=== PATIENT | female | born 1965 | race Caucasian/White ===

== ENCOUNTER 2016-10-07 13:18 | Day surgery (SDC) | payer BC ==
[2016-10-01 16:01] VITALS: BMI 36.8
[~2016-10-07] VITALS: Ht 170.2 cm; Wt 101.8 kg
[2016-10-07] VITALS (10 sets, daily range): BP systolic 114–137; BP diastolic 58–86; PULSE 86–96; RESP 3–25; Ht 170.2 cm; Wt 101.8 kg
[~2016-10-07 13:18] MED LIST: BUPR1PAT; CYCL-319; GABA-526; HYDR12.58; MELO-110; OXYC-183; SERT-165
[2016-10-07] MEDS ORDERED: GABA-526 PO (14:16)
[2016-10-07] MEDS ORDERED: HYDR12.58 PO (14:18)
[2016-10-07] MEDS ORDERED: HYDR-902 PO (14:18)
[2016-10-07] MEDS ORDERED: SERT100T PO (14:19)
[2016-10-07] MEDS ORDERED: MELO-110 PO (14:19)
[2016-10-07] MEDS ORDERED: PROPOFOL 20 ML ONE (15:44)
[2016-10-07] MEDS ORDERED: ROCURONIUM 50 MG INJ ONE (15:44)
[2016-10-07] MEDS ORDERED: MIDAZOLAM 1 MG/ML 2 ML INJ ONE (15:44)
[2016-10-07] MEDS ORDERED: FENTAnyl 50 MCG/ML VIAL ONE (15:45)
[2016-10-07] MEDS ORDERED: LIDOCAINE 1% (MDV) 20 ML INJ ONE (15:45)
--- NOTE | 2016-10-07 15:55 | HPN ---
Date/Time of Note Date/Time of Note DATE: 10/07/16 TIME: 15:55 Interval H&P Admission Note Pt. seen H&P reviewed: No system changes SHAISTA MANNING MD Oct 07, 2016 15:55
[2016-10-07] MEDS ORDERED: morphine 2 MG INJ IV PRN (16:00)
[2016-10-07] MEDS ORDERED: morphine 10 MG INJ IV PRN (16:00)
[2016-10-07] MEDS ORDERED: CEFAZOLIN 1 GM INJ ONE (16:07)
[2016-10-07] MEDS ORDERED: FAMOTIDINE 20 MG INJ ONE (16:13)
[2016-10-07] MEDS ORDERED: ONDANSETRON 4 MG INJ ONE (16:13)
[2016-10-07] MEDS ORDERED: DEXAMETHASONE 4 MG/ML 1 ML INJ ONE (16:13)
[2016-10-07] MEDS ORDERED: BUPIVACAINE 0.5% (MPF) 30 ML INJ INJ ONE (16:26)
[2016-10-07] MEDS ORDERED: BUPIVACAINE 0.5% (SDV) 30 ML INJ ONE (16:29)
[2016-10-07] MEDS ORDERED: ROPIVACAINE 0.5 % 30 ML VIAL INJ ONE (17:03)
[2016-10-07] MEDS ORDERED: ROPIVACAINE 0.5 % 30 ML VIAL ONE (17:05)
[2016-10-07] MEDS ORDERED: LABETALOL HCL 20MG INJ ONE (17:25)
[2016-10-07] MEDS ORDERED: SUGAMMADEX SODIUM 200 MG/2 ML VIAL IV ONE (17:31)
--- NOTE | 2016-10-07 17:54 | OPR ---
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 with a 2 x 2 chondral defect that is partial-thickness Operation Performed Right knee arthroscopy with chondroplasty of the patellofemoral compartment, medial compartment, lateral compartment Right knee arthroscopy with extensive debridement of ACL tear with partial attachment of the femoral side and full attachment of the tibial side Right knee medial and lateral partial meniscectomy Surgeon: SHAISTA MANNING MD Anesthesia Type: general, other (20 cc of ropivacaine) Anesthesiologist: JOANNE SUAREZ DO Tourniquet Time: 55 minutes at 250 mmHg Estimated Blood Loss: minimal Transfusion Required: no Specimen: none Grafts/Implants: none Complications: no Pt Condition Post Procedure: stable Disposition: PACU Indications Patient is a 50-year-old female who sustained a right knee injury several months ago with MRI confirming a partial ACL tear and medial lateral meniscal tear patient underwent extensive physical therapy and treatment anti- inflammatories however he did have catching clicking and locking pain without any complaints of any instability. Given that the patient is not athletic and not interested in returning to any sports of any time patient did not want to proceed with any ACL reconstruction and understands that if she does want to play any sports then she would need to be braced accordingly. Patient did have continued medial joint line pain and positive Hermann's sign that corresponded with her medial meniscus tear along with mechanical symptoms indicating patient for surgery. Operative\Procedure Findings Risk Note: Patient was explained the risks and benefits of surgery and the patient's [place] language including not limited to infection, bleeding, injury to blood vessels, nerves, ligaments or tendons. Risks of anesthesia, deep vein thrombosis and need for reduce future surgery. Patient acknowledged these risk by signing the surgical consent form. Procedure Description The correct operative site was noted and marked in the preoperative holding area. The patient was then brought back into the operative theater, placed supine on the operative table. Left knee was examined under anesthesia. Range of motion was 0-120. There is no varus or valgus or posterior instability. There is slightly positive anterior drawer and tamiko There is crepitus noticed at the patellofemoral joint. Tourniquet was then placed on the operative extremity thigh non-sterilely. Patient was then given preoperative antibiotics and then prepped and draped in normal sterile fashion. A timeout was taken and all parties in the room agreed it was the correct patient, correct extremity and correct procedure. 10 cc of 0.25% Marcaine without epi was injected into the anteriorlateral and anteriormedial portal sites prior to incision. Standard anterior lateral portal was created and the knee joint was entered with a blunt tipped trocar, followed by 30 arthroscope. Inflow was achieved with a pump and the pressure maintained at approximately 50 mmHg. A routine arthroscopic surgery was performed. Suprapatella pouch was unremarkable. The undersurface of the patella showed advanced grade 2 chondromalacia The medial and lateral gutters were visualized. There were no loose bodies seen. There is an inflamed hypertrophic plica noted in the anterior and superior medial aspect of the knee. The popliteus hiatus was entered and was normal. Lateral compartment was entered and grade 1 chondromalacia was seen on the lateral tibial plateau and femoral condyle. Scope was then brought into the intercondylar notch and an anteromedial portal was made. Shaver was brought into the knee and small amount of fat pad and scar tissue was initially gently debrided. The anterior cruciate ligament was probed and found to have a large tear in the central portion of the ACL with a scar ball of ACL in the intercondylar notch at the tibial attachment site. There is evidence of avulsion of approximately 75-80% of the ACL off the femoral wall and attached to anything which was gently debrided.. The knee was brought into a valgus position and the medial compartment was entered. The articular surface of the medial femoral condyle and medial tibial plateau revealed grade 3 chondromalacia 2 x 2 partial- thickness lateral defect. There was a longitudinal posterior horn medial meniscus tear extending to the midbody that was associated with a parrot-beak tear that visualized and debrided gently with a motorized shaver and basket forceps. The motorized shaver and basket biters were used to smooth the remaining meniscal rim, with care to maintain the peripheral meniscal rim. A probe was introduced and this was carefully probed and was found to be stable. Chondroplasty was then carried out along the weightbearing aspect of the medial femoral condyle, medial tibial plateau, taking care to remove only loose articular cartilage debris and preserve functional articular cartilage. The lateral compartment was reentered and the loose chondral debris was debrided with motorized shaver. There is found to be a partial tear of the posterior horn of the lateral meniscus which was debrided with both mya and biters to a firm a stable rim. Attention was then directed back to the patella femoral joint and a chondroplasty was carried out along the undersurface of the patella to again remove loose debris and maintain functional active articular cartilage. The knee was then irrigated with additional 2 L of lactated Ringers solution. Excess fluid was then drained. Range of motion was then attempted showing 0- 125 degrees of motion The portal sites were closed with 4-0 Monocryl and Steri-Strips and dressed with Xeroform and triple antibiotic ointment. The knee was then injected with 20 cc of 0.5% plain ropivacaine. A dry sterile dressing was then applied followed by a bulky soft bandage in a thigh-high Isra stocking. At the completion of the surgery patient had palpable pulses, soft arms and brisk cap refill. The patient tolerated the procedure well and was taken to the PACU without any complications. All sponge and needle counts were correct. Patient will begin pain medicine and 48 hours of antibiotics as well as aspirin 81 mg for the duration of 4 weeks postoperatively SHAISTA MANNING MD Oct 07, 2016 17:54
[2016-10-07] MEDS ORDERED: KETOROLAC 30 MG INJ ONE (17:56)
[2016-10-07] MEDS ORDERED: KETOROLAC 30 MG INJ IV STA (17:58)
[2016-10-07] MEDS ORDERED: DIPHENHYDRAMINE 50 MG INJ IV PRN (18:00)
[2016-10-07] MEDS ORDERED: ONDANSETRON 4 MG INJ IV PRN (18:00)
[2016-10-07] MEDS ORDERED: HYDROmorphONE (0.2 MG/ML) 10ML SYG IV PRN ×2 (18:00)
[2016-10-07] MEDS ORDERED: MEPERIDINE 25 MG INJ IV PRN (18:00)
[2016-10-07] MEDS ORDERED: hydrALAzine 20 MG INJ IV PRN (18:00)
[2016-10-07] MEDS ORDERED: LABETALOL HCL 20MG INJ IV PRN (18:00)
== END 2016-10-07 18:48 | disposition home or self-care (01) ==
LOC: SDS 13:18
PROVIDERS: ATTEND Orthopaedic Surgery
DX: M23.251 Derangement of posterior horn of lateral meniscus due to old tear or injury, right knee (principal); S83.511D Sprain of anterior cruciate ligament of right knee, subsequent encounter; X58.XXXD Exposure to other specified factors, subsequent encounter; M23.221 Derangement of posterior horn of medial meniscus due to old tear or injury, right knee; M94.261 Chondromalacia, right knee; I10 Essential (primary) hypertension; F32.9 Major depressive disorder, single episode, unspecified
CPT/HCPCS: 29880; 29888; J0690; J1170; J1885; J2175; J2250; J2270; J2405; J2795; J3010; Z7512; Z7610; J1100